=== PATIENT | female | born 1955 | race Caucasian/White ===

== ENCOUNTER 2019-07-10 00:37 | Inpatient (IN) | payer MEDICAID ==
[~2019-07-10] VITALS: Ht 154.9 cm; Wt 66.2 kg
[~2019-07-10 00:37] MED LIST: FURO20TA4 PO; GLIP10TA10 PO; METF-416 PO; PRAV20TA57 PO; SITA100T11 PO
[2019-07-10] MEDS ORDERED: SODIUM CHLORIDE 0.9% 1,000 ML IV ONE (01:02)
[2019-07-10] MEDS ORDERED: ONDANSETRON HCL 4MG/2ML INJ IV STA (01:02)
[2019-07-10] MEDS ORDERED: KETOROLAC 30MG/ML VIAL IV STA (01:02)
[2019-07-10 01:41] LABS: BASOPHILS % 0.5 % (0.0-2.0); HEMATOCRIT. 31.1 % (36.0-48.0); MEAN CORPUSCULAR HEMOGLOBIN 25.3 pg (28.0-32.0); MEAN CORPUSCULAR VOLUME 78.5 fL (81.0-99.0); MEAN PLATELET VOLUME 9.2 fl (7.4-10.4); MONOCYTES % 6.9 % (2.0-8.0); NEUTROPHILS % 78.6 % (40.0-76.0); PLATELET 107 x1000/uL (130-400); RED BLOOD CELL COUNT 3.96 mill/uL (4.2-5.4); RED CELL DISTRIBUTION WIDTH 18.9 % (11.6-14.6)
[2019-07-10 01:44] LABS: CHLORIDE 111 mEq/L (98-107)
[2019-07-10] MEDS ORDERED: MORPHINE SULFATE 4 MG/ML CPJ (NOT FOR IM USE) IV ONE (02:45)
[2019-07-10] MEDS ORDERED: POTASSIUM CHLORIDE 20MEQ TABLET SR PO SCH (08:30)
[2019-07-10] MEDS ORDERED: ACETAMINOPHEN 325MG TABLET PO PRN (08:30)
[2019-07-10] MEDS ORDERED: MORPHINE SULFATE 2 MG/ML CPJ (NOT FOR IM USE) IV PRN ×2 (08:30→17:30)
[2019-07-10] MEDS ORDERED: ONDANSETRON HCL 4MG/2ML INJ IV PRN (08:30)
[2019-07-10] MEDS ORDERED: HYDROCODONE/ACETAMINOPHEN 5/325MG TABLET PO PRN ×2 (08:30→17:30)
[2019-07-10] MEDS ORDERED: LIDOCAINE HCL 1% 20ML VIAL (Pyxis) INJ ONE (09:41)
[2019-07-10] MEDS ORDERED: SODIUM BICARBONATE 4% (2.4MEQ) 5ML VIAL IV ONE (09:41)
[2019-07-10] MEDS ORDERED: DEXTROSE 50% WATER 50ML SYRINGE IV PRN (17:15)
[2019-07-10 17:23] VITALS: BP 112/61
[2019-07-10 17:27] VITALS: BP 112/61
[2019-07-10] MEDS: INSULIN LISPRO 100 UNITS/ML SUBCUT SCH ×2 (17:53→21:35)
[2019-07-10] MEDS: BLOOD SUGAR DIAGNOSTIC STRIP TEST SCH ×2 (17:53→20:56)
[2019-07-10] MEDS ORDERED: OCTREOTIDE 1,000 MCG in SODIUM CHLORIDE 0.9% 98 ML IV SCH ×4 (18:30)
[2019-07-10 20:00] VITALS: BP 110/56
[2019-07-10] MEDS ORDERED: CEFTRIAXONE 1 G PREMIX 50 ML IV SCH (20:00)
[2019-07-10] MEDS: PANTOPRAZOLE SODIUM 40 MG/VIAL IV SCH (20:56)
[2019-07-10 22:11] LABS: CLARITY URINE CLEAR (CLEAR); COLOR URINE YELLOW (YELLOW); KETONES URINE NEGATIVE (NEGATIVE); LEUKOCYTE ESTERASE URINE NEGATIVE (NEGATIVE); NITRITE URINE NEGATIVE (NEGATIVE); OCCULT BLOOD URINE NEGATIVE (NEGATIVE); PROTEIN URINE NEGATIVE (NEGATIVE); SPECIFIC GRAVITY URINE 1.011 (1.005-1.030); UROBILINOGEN URINE 0.2 E.U./dL (0.2-1.0)
[2019-07-11 01:51] VITALS: BP 115/59
[2019-07-11 04:00] VITALS: BP 113/60
[2019-07-11 07:25] LABS: BASOPHILS % 0.5 % (0.0-2.0); EOSINOPHILS % 1.5 % (0.0-5.0); HEMATOCRIT. 29.4 % (36.0-48.0); HEMOGLOBIN. 9.6 g/dL (12.0-16.0); LYMPHOCYTES % 28.5 % (20.0-50.0); MEAN CORPUSCULAR HEMOGLOBIN 25.5 pg (28.0-32.0); MEAN PLATELET VOLUME 9.5 fl (7.4-10.4); MONOCYTES % 6.7 % (2.0-8.0); NEUTROPHILS % 62.8 % (40.0-76.0); PLATELET 102 x1000/uL (130-400); RED BLOOD CELL COUNT 3.77 mill/uL (4.2-5.4); RED CELL DISTRIBUTION WIDTH 19.1 % (11.6-14.6)
[2019-07-11] MEDS: BLOOD SUGAR DIAGNOSTIC STRIP TEST SCH ×3 (07:29→17:40)
[2019-07-11 07:30] LABS: INR 1.1; PARTIAL THROMBOPLASTIN TIME 27.3 sec (23.4-31.0); PROTHROMBIN TIME 11.6 sec (9.6-11.0)
[2019-07-11 07:36] LABS: CHLORIDE 112 mEq/L (98-107)
[2019-07-11] MEDS ORDERED: OMEPRAZOLE 20MG CAPSULE EXTENDED RELEASE PO SCH (07:40)
[2019-07-11 07:45] LABS: TOTAL IRON BINDING CAPACITY 366 ug/dL (250-450)
[2019-07-11 08:00] VITALS: BP 112/47
[2019-07-11] MEDS: INSULIN LISPRO 100 UNITS/ML SUBCUT SCH ×3 (08:01→18:10)
[2019-07-11 08:03] LABS: VITAMIN B12 SERUM 736 pg/mL (211-911)
[2019-07-11] MEDS ORDERED: SPIRONOLACTONE 50MG TABLET PO SCH (09:00)
[2019-07-11] MEDS ORDERED: FUROSEMIDE 40MG TABLET PO SCH (09:00)
[2019-07-11] MEDS: PANTOPRAZOLE SODIUM 40 MG/VIAL IV SCH (09:18)
[2019-07-11 12:00] VITALS: BP 111/57
[2019-07-11 12:20] LABS: FERRITIN 11 ng/mL (10-291)
[2019-07-11 12:31] LABS: HEPATITIS B SURFACE ANTIGEN NEGATIVE
[2019-07-11 13:00] LABS: HEPATITIS A AB IGM NEGATIVE (NEGATIVE)
[2019-07-11] MEDS ORDERED: SPIR100T5 MT (13:15)
[2019-07-11] MEDS ORDERED: FURO-151 MT (13:15)
[2019-07-11] MEDS ORDERED: PROP10TA10 MT (13:15)
[2019-07-11] MEDS ORDERED: SIMETHICONE 40 MG/0.6 ML 30ML ONE (16:06)
[2019-07-11] MEDS ORDERED: FENTANYL CITRATE/PF 50MCG/ML 2ML VIAL ONE (16:06)
[2019-07-11] MEDS ORDERED: MIDAZOLAM HCL 5 MG/5 ML VIAL ONE (16:06)
[2019-07-11] MEDS ORDERED: FENTANYL CITRATE/PF 50MCG/ML 2ML VIAL IV PRN (16:09)
[2019-07-11] MEDS ORDERED: MIDAZOLAM HCL 2 MG/2 ML VIAL IV PRN (16:10)
[2019-07-11 18:29] VITALS: BP 116/68
[2019-07-14 09:09] LABS: SACCHAROMYCES CEREVISIAE IGG 55.4 Units (0.0-24.9)
[2019-07-14 14:09] LABS: ATYPICAL pANCA <1:20 titer (Neg:<1:20)
== END 2019-07-11 19:19 | disposition home or self-care (01) ==
LOC: ER 01:26 → 7WST 05:48 → ENRESERV 14:22
PROVIDERS: ADMIT Internal Medicine; ATTEND Internal Medicine
PROC: 0W9G3ZZ Drainage of Peritoneal Cavity, Percutaneous Approach (ICD-10-PCS; 2019-07-10)
PROC: 0DB68ZX Excision of Stomach, Via Natural or Artificial Opening Endoscopic, Diagnostic (ICD-10-PCS; principal; 2019-07-11)
DX: K74.60 Unspecified cirrhosis of liver (principal); E44.0 Moderate protein-calorie malnutrition; D69.59 Other secondary thrombocytopenia; D69.6 Thrombocytopenia, unspecified; E87.8 Other disorders of electrolyte and fluid balance, not elsewhere classified; K76.6 Portal hypertension; I85.00 Esophageal varices without bleeding; R18.8 Other ascites; N39.0 Urinary tract infection, site not specified; E87.6 Hypokalemia; D64.9 Anemia, unspecified; E11.9 Type 2 diabetes mellitus without complications; E78.5 Hyperlipidemia, unspecified; G89.29 Other chronic pain; I10 Essential (primary) hypertension; K29.70 Gastritis, unspecified, without bleeding; K44.9 Diaphragmatic hernia without obstruction or gangrene; K52.9 Noninfective gastroenteritis and colitis, unspecified; K31.9 Disease of stomach and duodenum, unspecified; Z85.3 Personal history of malignant neoplasm of breast; Z79.84 Long term (current) use of oral hypoglycemic drugs; Z79.899 Other long term (current) drug therapy; Z68.27 Body mass index [BMI] 27.0-27.9, adult
CPT/HCPCS: 36415; 49083; 74176; 80048; 80053; 81003; 82105; 82140; 82607; 82728; 82746; 82962; 83540; 83550; 83880; 84484; 85025; 86256; 86671; 86705; 86709; 86803; 87340; 88305; 88312; 88313; 93005; 99285; C9113; J0696; J1815; J1885; J2250; J2270; J2354; J2405; J3010; J3490; J7030; J7050

== ENCOUNTER 2021-11-15 05:35 | Emergency (ER) | payer MEDICAID, OTHER ==
[~2021-11-15] VITALS: Ht 154.9 cm; Wt 55.6 kg
[~2021-11-15 05:35] MED LIST changes: +FURO-151 MT; -FURO20TA4 PO; +LATA7.5D OP; +OMEP40CA20 MT; +PROP10TA10 MT; -SITA100T11 PO; +SPIR100T5 MT
[2021-11-15 06:26] LABS: BASOPHILS % 1.5 % (0.0-2.0); CHLORIDE 106 mEq/L (98-107); HEMATOCRIT. 25.6 % (36.0-48.0); LYMPHOCYTES % 32.8 % (20.0-50.0); MEAN CORPUSCULAR HEMOGLOBIN 24.9 pg (28.0-32.0); MEAN CORPUSCULAR VOLUME 79.3 fL (81.0-99.0); MEAN PLATELET VOLUME 8.8 fl (7.4-10.4); MONOCYTES % 10.8 % (2.0-8.0); NEUTROPHILS % 53.9 % (40.0-76.0); PLATELET 153 x1000/uL (130-400); RED BLOOD CELL COUNT 3.23 mill/uL (4.2-5.4); RED CELL DISTRIBUTION WIDTH 18.2 % (11.6-14.6)
[2021-11-15] MEDS ORDERED: FAMOTIDINE 20MG/2ML VIAL IV STA (08:10)
[2021-11-15 08:31] LABS: CLARITY URINE CLEAR (CLEAR); COLOR URINE YELLOW (YELLOW); KETONES URINE NEGATIVE (NEGATIVE); LEUKOCYTE ESTERASE URINE NEGATIVE (NEGATIVE); NITRITE URINE NEGATIVE (NEGATIVE); OCCULT BLOOD URINE NEGATIVE (NEGATIVE); PH URINE 5.5 (4.5-8.0); PROTEIN URINE NEGATIVE (NEGATIVE); SPECIFIC GRAVITY URINE 1.019 (1.005-1.030); UROBILINOGEN URINE 0.2 E.U./dL (0.2-1.0)
[2021-11-15 08:59] LABS: PARTIAL THROMBOPLASTIN TIME 23.4 sec (23.4-31.0); PROTHROMBIN TIME 10.9 sec (9.6-11.0)
[2021-11-15] MEDS ORDERED: SODIUM BICARBONATE 4% (2.4MEQ) 5ML VIAL IV ONE (10:02)
[2021-11-15] MEDS ORDERED: LIDOCAINE HCL 1% 10 MG/ML 10ML VIAL ONE (10:02)
[2021-11-15] MEDS ORDERED: FAMO-135 MT ×2 (11:02→11:49)
[2021-11-15 11:56] VITALS: BP 112/58
== END 2021-11-15 12:03 | disposition home or self-care (01) ==
LOC: ER 05:57
DX: R18.8 Other ascites (principal); E11.9 Type 2 diabetes mellitus without complications; Z79.899 Other long term (current) drug therapy; Z20.822 Contact with and (suspected) exposure to COVID-19
CPT/HCPCS: 36415; 70450; 70486; 74176; 76705; 80053; 81003; 85025; 85610; 85730; 87426; 96374; 99284; J3490

== ENCOUNTER 2022-03-22 20:16 | Emergency (ER) | payer MEDICAID, OTHER ==
[~2022-03-22] VITALS: Ht 157.5 cm; Wt 54.0 kg
[~2022-03-22 20:16] MED LIST changes: +FAMO-135 MT
[2022-03-22 23:28] LABS: PROTHROMBIN TIME 11.2 sec (9.6-11.0)
[2022-03-22 23:29] LABS: CHLORIDE 105 mEq/L (98-107)
[2022-03-22 23:42] LABS: BASOPHILS % 0.7 % (0.0-2.0); EOSINOPHILS % 0.8 % (0.0-5.0); HEMATOCRIT. 24.9 % (36.0-48.0); HEMOGLOBIN. 7.6 g/dL (12.0-16.0); LYMPHOCYTES % 23.7 % (20.0-50.0); MEAN CORPUSCULAR HEMOGLOBIN 23.3 pg (28.0-32.0); MEAN CORPUSCULAR VOLUME 76.8 fL (81.0-99.0); MONOCYTES % 11.2 % (2.0-8.0); NEUTROPHILS % 63.6 % (40.0-76.0); PLATELET 151 x1000/uL (130-400); RED BLOOD CELL COUNT 3.23 mill/uL (4.2-5.4); RED CELL DISTRIBUTION WIDTH 17.7 % (11.6-14.6)
[2022-03-23 02:15] VITALS: BP 114/54
== END 2022-03-23 02:15 | disposition home or self-care (01) ==
LOC: ER 20:16
DX: R53.1 Weakness (principal); D64.9 Anemia, unspecified; E11.65 Type 2 diabetes mellitus with hyperglycemia; Z98.890 Other specified postprocedural states; Z85.6 Personal history of leukemia; Z79.899 Other long term (current) drug therapy
CPT/HCPCS: 36415; 71045; 80053; 84484; 85025; 93005; 99285

== ENCOUNTER 2024-05-11 15:22 | Inpatient (IN) | payer MEDICAID, OTHER ==
[~2024-05-11] VITALS: Ht 154.9 cm; Wt 59.0 kg
[~2024-05-11 15:22] MED LIST changes: +ASPI-1160 PO; +COR6 MT; -FAMO-135 MT; +FERR325T6 MT; -LATA7.5D OP; +LEVO-65 MT; +LINA5TAB MT; +MIDO5TAB4 MT; -PRAV20TA57 PO; -PROP10TA10 MT; -SPIR100T5 MT; +SPIR25TA6 MT; +SUCR1TAB30 MT; +TRAZ-251 MT
[2024-05-11] MEDS: MORPHINE SULFATE 4 MG/ML INJ (FOR IV/IM USE) IV STA (16:45)
[2024-05-11] MEDS: ONDANSETRON HCL 4MG/2ML INJ IV STA (16:46)
[2024-05-11] MEDS: SODIUM CHLORIDE 0.9% 1,000 ML IV ONE (16:46)
[2024-05-11 17:00] LABS: BASOPHILS % 1.1 % (0.0-2.0); EOSINOPHILS % 0.5 % (0.0-5.0); HEMATOCRIT. 26.4 % (36.0-48.0); HEMOGLOBIN. 8.4 g/dL (12.0-16.0); LYMPHOCYTES % 16.4 % (20.0-50.0); MEAN CORPUSCULAR HEMOGLOBIN 27.8 pg (28.0-32.0); MEAN CORPUSCULAR HGB CONC 31.7 g/dL (31.0-37.0); MEAN CORPUSCULAR VOLUME 87.8 fL (81.0-99.0); MEAN PLATELET VOLUME 9.4 fl (7.4-10.4); MONOCYTES % 9.8 % (2.0-8.0); NEUTROPHILS % 72.2 % (40.0-76.0); PLATELET 146 x1000/uL (130-400); RED BLOOD CELL COUNT 3.01 mill/uL (4.2-5.4); WHITE BLOOD COUNT 6.1 x1000/uL (4.5-11.0)
[2024-05-11 17:05] LABS: CARBON DIOXIDE 23 mEq/L (21-32); CHLORIDE 100 mEq/L (98-107); POTASSIUM 5.1 mEq/L (3.5-5.1); SODIUM 129 mEq/L (136-145)
[2024-05-11 17:06] LABS: CALCIUM 9.2 mg/dL (8.7-10.4)
[2024-05-11 17:10] LABS: CREATININE 1.1 mg/dL (0.6-1.0)
[2024-05-11 17:11] LABS: GLUCOSE 391 mg/dL (70-105); TROPONIN I HIGH SENSITIVITY 7 ng/L (3.0-34); UREA NITROGEN BLOOD 17 mg/dL (9-23)
[2024-05-11 17:12] LABS: ALANINE AMINOTRANSFERASE 25 IU/L (10-49); ALBUMIN 3.3 g/dL (3.2-4.8); ASPARTATE AMINOTRANSFERASE 69 IU/L (<34)
[2024-05-11 17:13] LABS: BILIRUBIN DIRECT 0.3 mg/dL (<=3.0); BILIRUBIN TOTAL 0.7 mg/dL (0.1-1.0)
[2024-05-11 17:27] LABS: BETA HYDROXYBUTYRATE 0.5 mMol/L (0.0-0.3)
[2024-05-12 00:34] LABS: CLARITY URINE CLEAR (CLEAR); COLOR URINE YELLOW (YELLOW); GLUCOSE URINE 3+ (NEGATIVE); KETONES URINE TRACE (NEGATIVE); LEUKOCYTE ESTERASE URINE NEGATIVE (NEGATIVE); NITRITE URINE NEGATIVE (NEGATIVE); OCCULT BLOOD URINE NEGATIVE (NEGATIVE); PROTEIN URINE NEGATIVE (NEGATIVE); SPECIFIC GRAVITY URINE 1.033 (1.005-1.030); UROBILINOGEN URINE 0.2 E.U./dL (0.2-1.0)
[2024-05-12 01:07] LABS: BACTERIA URINE NONE SEEN; RBC URINE NONE SEEN /hpf (0-2); SQUAMOUS EPITHELIAL CELL URINE NONE SEEN /lpf (RARE/1+); WBC URINE NONE SEEN /hpf (0-2)
[2024-05-12 01:41] LABS: PARTIAL THROMBOPLASTIN TIME 25.6 sec (23.4-31.0); PROTHROMBIN TIME 11.4 sec (9.6-11.0)
[2024-05-12 04:00] VITALS: BP 98/40; PULSE 82; RESP 18; TEMP 36.3918; TEMP 37.05852; O2SAT 99
[2024-05-12] MEDS ORDERED: DEXTROSE 50% WATER 50ML SYRINGE IV PRN (09:30)
[2024-05-12] MEDS: BLOOD SUGAR DIAGNOSTIC STRIP TEST SCH (12:08)
[2024-05-12] MEDS: INSULIN LISPRO 100 UNITS/ML SUBCUT SCH (12:15)
[2024-05-13 01:22] VITALS: BP 105/55; PULSE 97; RESP 20; TEMP 36.974
[2024-05-13 08:00] VITALS: BP 100/59; PULSE 93; RESP 17; TEMP 36.50292; O2SAT 100
[2024-05-13] MEDS: ACETAMINOPHEN 325MG TABLET PO PRN (08:24)
[2024-05-13] MEDS: ONDANSETRON HCL 4MG/2ML INJ IV PRN (08:24)
[2024-05-13] MEDS ORDERED: LIDOCAINE HCL 1% 10 MG/ML 10ML VIAL ONE (10:14)
[2024-05-13] MEDS ORDERED: SODIUM BICARBONATE 4% 2.4MEQ/5ML VIAL IV ONE (10:14)
[2024-05-13] MEDS ORDERED: INSU100I28 SQ (10:47)
[2024-05-13] MEDS: INSULIN GLARGINE 100 UNITS/ML SUBCUT NR (11:00)
[2024-05-13 12:00] VITALS: BP 94/44; PULSE 17; RESP 17; TEMP 36.3918; O2SAT 99
[2024-05-13 16:00] VITALS: BP 96/46; PULSE 77; RESP 17; TEMP 35.33616; O2SAT 97
[2024-05-13] MEDS ORDERED: PNEUMOCOCCAL 20-VAL CONJ-DIP CRM 0.5ML IM ONE (18:00)
== END 2024-05-13 19:00 | disposition home or self-care (01) ==
LOC: ER 15:22 → 5WST 18:21 → EDBEDREQTM 18:35 → EDBEDREQ 18:35 → 8WST 05-12 22:02
PROVIDERS: ADMIT Internal Medicine; ATTEND Internal Medicine
PROC: 0W9G3ZZ Drainage of Peritoneal Cavity, Percutaneous Approach (ICD-10-PCS; principal; 2024-05-13)
DX: K74.60 Unspecified cirrhosis of liver (principal); R18.8 Other ascites; I50.9 Heart failure, unspecified; I11.0 Hypertensive heart disease with heart failure; E11.65 Type 2 diabetes mellitus with hyperglycemia; D64.9 Anemia, unspecified; Z79.4 Long term (current) use of insulin; Z85.3 Personal history of malignant neoplasm of breast; Z90.12 Acquired absence of left breast and nipple; Z92.21 Personal history of antineoplastic chemotherapy; Z92.3 Personal history of irradiation
CPT/HCPCS: 36415; 49083; 71045; 74176; 80048; 80076; 81003; 82010; 82962; 83880; 84484; 85025; 93005; 99285; J1815; J2270; J2405; J3490; J7030

== ENCOUNTER 2024-05-23 05:27 | Inpatient (IN) | payer MEDICAID, OTHER ==
[~2024-05-23] VITALS: Ht 154.9 cm; Wt 51.3 kg
[~2024-05-23 05:27] MED LIST changes: +INSU100I28 SQ; -LEVO-65 MT
[2024-05-23 05:52] VITALS: O2SAT 98
[2024-05-23 05:56] LABS: BASOPHILS % 0.6 % (0.0-2.0); EOSINOPHILS % 0.7 % (0.0-5.0); HEMATOCRIT. 31.8 % (36.0-48.0); HEMOGLOBIN. 9.8 g/dL (12.0-16.0); LYMPHOCYTES % 15.9 % (20.0-50.0); MEAN CORPUSCULAR HEMOGLOBIN 27.6 pg (28.0-32.0); MEAN CORPUSCULAR HGB CONC 30.8 g/dL (31.0-37.0); MEAN CORPUSCULAR VOLUME 89.8 fL (81.0-99.0); MEAN PLATELET VOLUME 8.8 fl (7.4-10.4); MONOCYTES % 14.1 % (2.0-8.0); NEUTROPHILS % 68.7 % (40.0-76.0); PLATELET 183 x1000/uL (130-400); RED BLOOD CELL COUNT 3.54 mill/uL (4.2-5.4); RED CELL DISTRIBUTION WIDTH 22.9 % (11.6-14.6); WHITE BLOOD COUNT 5.5 x1000/uL (4.5-11.0)
[2024-05-23 06:14] LABS: CHLORIDE 102 mEq/L (98-107); POTASSIUM 4.1 mEq/L (3.5-5.1); SODIUM 134 mEq/L (136-145)
[2024-05-23 06:15] LABS: CALCIUM 8.5 mg/dL (8.7-10.4); CARBON DIOXIDE 25 mEq/L (21-32)
[2024-05-23 06:20] LABS: CREATININE 1.1 mg/dL (0.6-1.0); GLUCOSE 259 mg/dL (70-105); UREA NITROGEN BLOOD 16 mg/dL (9-23)
[2024-05-23 06:22] LABS: ALANINE AMINOTRANSFERASE 31 IU/L (10-49); ALBUMIN 3.2 g/dL (3.2-4.8); ASPARTATE AMINOTRANSFERASE 41 IU/L (<34); BILIRUBIN DIRECT 0.3 mg/dL (<=3.0)
[2024-05-23 06:23] LABS: BILIRUBIN TOTAL 0.6 mg/dL (0.1-1.0); PROTEIN TOTAL 6.8 g/dL (6.0-8.3)
[2024-05-23 06:51] LABS: PROTHROMBIN TIME 11.4 sec (9.6-11.0)
[2024-05-23 07:05] LABS: DIFFERENTIAL COMMENT 1
[2024-05-23 07:08] LABS: ADD RBC MORPHOLOGY YES
[2024-05-23 08:41] LABS: ANISOCYTOSIS 1+; PLATELET ESTIMATE NORMAL
[2024-05-23] MEDS: SODIUM BICARBONATE 4% 2.4MEQ/5ML VIAL IV ONE (09:27)
[2024-05-23] MEDS: LIDOCAINE HCL 1% 10 MG/ML 10ML VIAL ONE (09:27)
[2024-05-23 20:00] VITALS: BP 106/57; PULSE 76; RESP 16; TEMP 37.2252; O2SAT 98
[2024-05-23] MEDS ORDERED: MAGNESIUM/ALUMINUM HYDROXIDE/SIMETHICONE 30ML UDC PO PRN (21:00)
[2024-05-23] MEDS ORDERED: GUAIFENESIN 200MG/10ML SUGAR FREE UDC PO PRN (21:00)
[2024-05-23] MEDS: BLOOD SUGAR DIAGNOSTIC STRIP TEST SCH (21:00)
[2024-05-23] MEDS ORDERED: ZOLPIDEM TARTRATE 5MG TABLET PO PRN (21:00)
[2024-05-23] MEDS ORDERED: IPRATROPIUM/ALBUTEROL 0.5-3(2.5)MG/3ML NEB NEB PRN (21:00)
[2024-05-23] MEDS ORDERED: NITROGLYCERIN 0.4MG TABLET SL SL PRN (21:00)
[2024-05-23] MEDS: INSULIN LISPRO 100 UNITS/ML SUBCUT SCH (21:00)
[2024-05-23] MEDS ORDERED: CLONIDINE 0.1MG TABLET PO PRN (21:00)
[2024-05-23] MEDS ORDERED: DEXTROSE 50% WATER 50ML SYRINGE IV PRN (21:00)
[2024-05-23] MEDS ORDERED: ONDANSETRON HCL 4MG/2ML INJ IV PRN (21:00)
[2024-05-23] MEDS: PANTOPRAZOLE SODIUM 40 MG/VIAL IV SCH (21:00)
[2024-05-23] MEDS ORDERED: ACETAMINOPHEN 325MG TABLET PO PRN ×2 (21:00)
[2024-05-23] MEDS ORDERED: DOCUSATE SODIUM 100MG CAPSULE PO PRN (21:00)
[2024-05-24] VITALS: BP 107/60; PULSE 97; RESP 21; TEMP 37.00296; O2SAT 100
[2024-05-24] MEDS: KETOROLAC 30MG/ML VIAL IV PRN (00:48)
[2024-05-24 01:09] VITALS: BP 107/60; PULSE 97; RESP 21; TEMP 37.0296
[2024-05-24 04:00] VITALS: BP 97/47; PULSE 95; RESP 18; TEMP 36.114; O2SAT 100
[2024-05-24 08:00] VITALS: BP 106/57; PULSE 76; RESP 16; TEMP 37.2252; O2SAT 98
[2024-05-24] MEDS: MIDODRINE HCL 5MG TABLET PO SCH (09:00)
[2024-05-24 10:42] LABS: CHLORIDE 101 mEq/L (98-107); POTASSIUM 3.7 mEq/L (3.5-5.1); SODIUM 134 mEq/L (136-145)
[2024-05-24 10:44] LABS: CARBON DIOXIDE 23 mEq/L (21-32)
[2024-05-24 10:45] LABS: CALCIUM 8.3 mg/dL (8.7-10.4)
[2024-05-24 10:50] LABS: CREATININE 1.1 mg/dL (0.6-1.0); GLUCOSE 298 mg/dL (70-105); UREA NITROGEN BLOOD 22 mg/dL (9-23)
[2024-05-24 10:51] LABS: ALANINE AMINOTRANSFERASE 32 IU/L (10-49); ALBUMIN 2.8 g/dL (3.2-4.8); ASPARTATE AMINOTRANSFERASE 44 IU/L (<34)
[2024-05-24 10:52] LABS: BILIRUBIN TOTAL 0.6 mg/dL (0.1-1.0); PHOSPHORUS 3.3 mg/dL (2.5-4.9); PROTEIN TOTAL 6.3 g/dL (6.0-8.3); T4 FREE 1.16 ng/dL (0.89-1.76)
[2024-05-24 10:53] LABS: BASOPHILS % 0.6 % (0.0-2.0); EOSINOPHILS % 0.5 % (0.0-5.0); HEMATOCRIT. 33.1 % (36.0-48.0); LYMPHOCYTES % 15.1 % (20.0-50.0); MEAN CORPUSCULAR HEMOGLOBIN 27.4 pg (28.0-32.0); MEAN CORPUSCULAR HGB CONC 30.3 g/dL (31.0-37.0); MEAN CORPUSCULAR VOLUME 90.6 fL (81.0-99.0); MEAN PLATELET VOLUME 8.9 fl (7.4-10.4); MONOCYTES % 8.8 % (2.0-8.0); PLATELET 157 x1000/uL (130-400); RED BLOOD CELL COUNT 3.66 mill/uL (4.2-5.4); RED CELL DISTRIBUTION WIDTH 22.7 % (11.6-14.6); THYROID STIMULATING HORMONE 2.36 uIU/mL (0.55-4.78); WHITE BLOOD COUNT 4.6 x1000/uL (4.5-11.0)
[2024-05-24 11:09] LABS: DIFFERENTIAL COMMENT 1
[2024-05-24 11:58] LABS: FOLIC ACID (FOLATE) SERUM 12.87 ng/mL (>5.38)
[2024-05-24 12:00] VITALS: BP 98/57; PULSE 76; RESP 16; TEMP 36.6696; O2SAT 98
[2024-05-24 12:09] LABS: HEPATITIS B SURFACE ANTIGEN NEGATIVE (Negative)
[2024-05-24 12:30] LABS: HEPATITIS A AB IGM NEGATIVE (Negative)
[2024-05-24 12:31] LABS: HEPATITIS B CORE AB IGM NEGATIVE (Negative); HEPATITIS C AB NON REACTIVE (Neg) (Negative)
[2024-05-24 13:23] LABS: VITAMIN B12 SERUM 2197 pg/mL (211-911)
[2024-05-24 16:00] VITALS: BP 110/60; PULSE 76; RESP 16; TEMP 36.61404; O2SAT 98
== END 2024-05-24 16:15 | disposition home or self-care (01) ==
LOC: ER 05:27 → 5WST 06:43 → 6WST 23:45
PROVIDERS: ADMIT Internal Medicine; ATTEND Internal Medicine
PROC: 0W9G3ZZ Drainage of Peritoneal Cavity, Percutaneous Approach (ICD-10-PCS; principal; 2024-05-23)
DX: K74.60 Unspecified cirrhosis of liver (principal); K76.7 Hepatorenal syndrome; N17.9 Acute kidney failure, unspecified; R18.8 Other ascites; E44.1 Mild protein-calorie malnutrition; D63.8 Anemia in other chronic diseases classified elsewhere; I11.0 Hypertensive heart disease with heart failure; I95.9 Hypotension, unspecified; E83.51 Hypocalcemia; I50.9 Heart failure, unspecified; E11.9 Type 2 diabetes mellitus without complications; Z68.21 Body mass index [BMI] 21.0-21.9, adult; Z90.10 Acquired absence of unspecified breast and nipple
CPT/HCPCS: 36415; 49083; 74176; 80048; 80053; 80076; 82607; 82746; 82962; 83735; 84100; 84439; 84443; 85025; 86705; 86709; 86850; 86900; 87340; 93970; 99285; J1815; J1885; J2470; J3490

== ENCOUNTER 2024-11-17 10:47 | Inpatient (IN) | payer OTHER ==
[~2024-11-17] VITALS: Ht 154.9 cm; Wt 48.1 kg
[~2024-11-17 10:47] MED LIST changes: -ASPI-1160 PO; +BUME2TAB7 PO; +DOCU-422 PO; +GABA-1180 PO; -GLIP10TA10 PO; +GLIP10TA17 PO; +HYDR10TA34 PO; +PARO10TA74 PO
[2024-11-17] MEDS: CALCIUM GLUCONATE 1GM PREMIX 50 ML IV ONE (11:35)
[2024-11-17 11:42] LABS: HEMATOCRIT. 32.5 % (36.0-48.0); HEMOGLOBIN. 10.5 g/dL (12.0-16.0); MEAN CORPUSCULAR HEMOGLOBIN 28.2 pg (28.0-32.0); MEAN CORPUSCULAR HGB CONC 32.4 g/dL (31.0-37.0); MEAN CORPUSCULAR VOLUME 87.2 fL (81.0-99.0); MEAN PLATELET VOLUME 8.3 fl (7.4-10.4); PLATELET 290 x1000/uL (130-400); RED BLOOD CELL COUNT 3.73 mill/uL (4.2-5.4); RED CELL DISTRIBUTION WIDTH 16.8 % (11.6-14.6); WHITE BLOOD COUNT 5.6 x1000/uL (4.5-11.0)
[2024-11-17 11:43] LABS: DIFFERENTIAL COMMENT 1
[2024-11-17 11:50] LABS: INR 1.1; PROTHROMBIN TIME 11.3 sec (9.6-11.0)
[2024-11-17 11:51] LABS: CHLORIDE 94 mEq/L (98-107); POTASSIUM 4.4 mEq/L (3.5-5.1); SODIUM 127 mEq/L (136-145)
[2024-11-17 11:52] LABS: CALCIUM 8.6 mg/dL (8.7-10.4); CARBON DIOXIDE 29 mEq/L (21-32)
[2024-11-17 11:57] LABS: UREA NITROGEN BLOOD 14 mg/dL (9-23)
[2024-11-17 11:58] LABS: TROPONIN I HIGH SENSITIVITY 6 ng/L (3.0-34)
[2024-11-17 11:59] LABS: ALANINE AMINOTRANSFERASE 38 IU/L (10-49); ALBUMIN 2.9 g/dL (3.2-4.8); ASPARTATE AMINOTRANSFERASE 47 IU/L (<34); BILIRUBIN DIRECT 0.2 mg/dL (<=3.0)
[2024-11-17 12:00] LABS: BILIRUBIN TOTAL 0.6 mg/dL (0.1-1.0); PROTEIN TOTAL 7.7 g/dL (6.0-8.3)
[2024-11-17 12:20] LABS: GLUCOSE 521 mg/dL (70-105)
[2024-11-17 13:19] LABS: ANISOCYTOSIS 1+; PLATELET ESTIMATE NORMAL
[2024-11-17 13:44] LABS: CLARITY URINE CLEAR (CLEAR); COLOR URINE YELLOW (YELLOW); GLUCOSE URINE 3+ (NEGATIVE); KETONES URINE NEGATIVE (NEGATIVE); LEUKOCYTE ESTERASE URINE NEGATIVE (NEGATIVE); NITRITE URINE NEGATIVE (NEGATIVE); OCCULT BLOOD URINE NEGATIVE (NEGATIVE); PH URINE 6.5 (4.5-8.0); PROTEIN URINE NEGATIVE (NEGATIVE); SPECIFIC GRAVITY URINE 1.025 (1.005-1.030); UROBILINOGEN URINE 0.2 E.U./dL (0.2-1.0)
[2024-11-17] MEDS: CEFTRIAXONE 1GM/50ML 50 ML IV ONE (14:08)
[2024-11-17 14:15] LABS: SQUAMOUS EPITHELIAL CELL URINE 1+ /lpf (RARE/1+)
[2024-11-17 14:16] LABS: BACTERIA URINE TRACE
[2024-11-17 14:17] LABS: RBC URINE NONE SEEN /hpf (0-2); WBC URINE 0-2 /hpf (0-2)
[2024-11-17 16:00] VITALS: BP 101/56; PULSE 84; RESP 18; TEMP 36.5; O2SAT 100
[2024-11-17] MEDS ORDERED: DEXTROSE 50% WATER 50ML SYRINGE IV PRN (18:00)
[2024-11-17] MEDS ORDERED: ONDANSETRON HCL 4MG/2ML INJ IV PRN (18:00)
[2024-11-17 18:25] VITALS: BP 101/56; PULSE 84; RESP 18; TEMP 36.5
[2024-11-17 20:00] VITALS: BP 103/59; PULSE 74; RESP 20; TEMP 36.1; O2SAT 94
[2024-11-17] MEDS: BLOOD SUGAR DIAGNOSTIC STRIP TEST SCH (21:39)
[2024-11-17] MEDS: INSULIN LISPRO 100 UNITS/ML SUBCUT SCH (21:53)
[2024-11-17] MEDS: ACETAMINOPHEN 325MG TABLET PO PRN (21:54)
[2024-11-18] VITALS: BP 100/53; PULSE 86; RESP 18; TEMP 37.5; O2SAT 97
[2024-11-18 04:00] VITALS: BP 113/62; PULSE 78; RESP 18; TEMP 36.7; O2SAT 97
[2024-11-18 08:00] VITALS: BP 93/62; PULSE 83; RESP 20; TEMP 36.8; O2SAT 98
[2024-11-18] MEDS ORDERED: LIDOCAINE HCL 1% 10 MG/ML 10ML VIAL ONE (09:38)
[2024-11-18 12:00] VITALS: BP 99/53; PULSE 87; RESP 20; TEMP 36.1; O2SAT 100
[2024-11-18 13:48] LABS: EOSINOPHILS % 0.8 % (0.0-5.0); HEMATOCRIT. 31.8 % (36.0-48.0); HEMOGLOBIN. 10.3 g/dL (12.0-16.0); LYMPHOCYTES % 10.6 % (20.0-50.0); MEAN CORPUSCULAR HEMOGLOBIN 28.2 pg (28.0-32.0); MEAN CORPUSCULAR HGB CONC 32.4 g/dL (31.0-37.0); MEAN CORPUSCULAR VOLUME 87.1 fL (81.0-99.0); MEAN PLATELET VOLUME 7.9 fl (7.4-10.4); MONOCYTES % 12.5 % (2.0-8.0); NEUTROPHILS % 75.1 % (40.0-76.0); PLATELET 286 x1000/uL (130-400); RED BLOOD CELL COUNT 3.65 mill/uL (4.2-5.4); RED CELL DISTRIBUTION WIDTH 16.7 % (11.6-14.6)
[2024-11-18 13:49] LABS: CHLORIDE 94 mEq/L (98-107); POTASSIUM 3.7 mEq/L (3.5-5.1); SODIUM 128 mEq/L (136-145)
[2024-11-18 13:50] LABS: CALCIUM 8.2 mg/dL (8.7-10.4); CARBON DIOXIDE 30 mEq/L (21-32)
[2024-11-18 13:55] LABS: CREATININE 0.8 mg/dL (0.6-1.0); GLUCOSE 276 mg/dL (70-105); UREA NITROGEN BLOOD 15 mg/dL (9-23)
[2024-11-18] MEDS: TRAMADOL 50MG TABLET PO NR (14:58)
[2024-11-18 16:00] VITALS: BP 109/62; PULSE 84; RESP 20; TEMP 36.5; O2SAT 100
[2024-11-18] MEDS ORDERED: NALOXONE HCL 0.4MG/ML VIAL IV PRN (17:45)
[2024-11-18] MEDS: HYDROCODONE/ACETAMINOPHEN 5/325MG TABLET PO NR (18:14)
[2024-11-18 20:00] VITALS: BP 97/58; PULSE 70; RESP 20; TEMP 36.2; O2SAT 100
[2024-11-19] VITALS: BP 97/55; PULSE 79; RESP 19; TEMP 35.9; O2SAT 96
[2024-11-19 04:00] VITALS: BP 104/57; PULSE 79; RESP 20; TEMP 36; O2SAT 99
[2024-11-19 08:00] VITALS: BP 107/60; PULSE 84; RESP 18; TEMP 35.9; O2SAT 96
[2024-11-19 08:50] VITALS: BP 114/72; PULSE 67; TEMP 97.6; O2SAT 98
[2024-11-19 08:58] VITALS: BP 114/72; PULSE 67; RESP 18
[2024-11-19] MEDS: HYDROCODONE/ACETAMINOPHEN 5/325MG TABLET PO SCH (08:58)
== END 2024-11-19 12:56 | disposition home or self-care (01) ==
LOC: ER 10:47 → 8WST 14:56 → EDBEDREQ 15:02 → EDBEDREQTM 15:02 → ENRESERV 16:14
PROVIDERS: ADMIT Internal Medicine; ATTEND Internal Medicine
PROC: 0W9G3ZZ Drainage of Peritoneal Cavity, Percutaneous Approach (ICD-10-PCS; principal; 2024-11-18)
DX: K74.60 Unspecified cirrhosis of liver (principal); R18.8 Other ascites; E44.0 Moderate protein-calorie malnutrition; E87.1 Hypo-osmolality and hyponatremia; E11.65 Type 2 diabetes mellitus with hyperglycemia; I10 Essential (primary) hypertension; D72.825 Bandemia; E78.5 Hyperlipidemia, unspecified; Z68.20 Body mass index [BMI] 20.0-20.9, adult; Z85.3 Personal history of malignant neoplasm of breast; Z90.10 Acquired absence of unspecified breast and nipple
CPT/HCPCS: 36415; 49083; 71045; 74176; 80048; 80076; 81003; 82962; 83036; 84145; 84484; 85025; 93005; 96365; 96366; 96367; 99291; A4606; J0610; J0696; J1815; J2003

== ENCOUNTER 2024-12-26 10:31 | Inpatient (IN) | payer OTHER ==
[~2024-12-26] VITALS: Ht 154.9 cm; Wt 53.5 kg
[2024-12-26] VITALS (29 sets, daily range): BP systolic 99–130; BP diastolic 55–70; PULSE 90–112; RESP 11–24; TEMP 36.7; O2SAT 98–100
[2024-12-26] MEDS: DEXT 5%/0.9% NACL 1,000 ML IV SCH (01:17)
[2024-12-26] MEDS: LIDOCAINE HCL/EPINEPHRINE 1%-EPI 1:100,000 10ML VIAL INFIL ONE (11:00)
[2024-12-26] MEDS: SODIUM CHLORIDE 0.9% 1,000 ML IV ONE (11:15)
[2024-12-26] MEDS: ONDANSETRON HCL 4MG/2ML INJ IV ONE (11:15)
[2024-12-26] MEDS: PANTOPRAZOLE SODIUM 40 MG/VIAL IV ONE (11:15)
[2024-12-26] MEDS: MORPHINE SULFATE 2 MG/ML INJ (NOT FOR IM USE) IV ONE ×2 (11:23→14:14)
[2024-12-26] MEDS: CEFTRIAXONE 2GM/50ML 50 ML IV ONE (11:24)
[2024-12-26 11:34] LABS: HEMATOCRIT. 22.5 % (36.0-48.0); HEMOGLOBIN. 7.3 g/dL (12.0-16.0); MEAN CORPUSCULAR HEMOGLOBIN 28.7 pg (28.0-32.0); MEAN CORPUSCULAR HGB CONC 32.4 g/dL (31.0-37.0); MEAN CORPUSCULAR VOLUME 88.6 fL (81.0-99.0); MEAN PLATELET VOLUME 9.1 fl (7.4-10.4); PLATELET 271 x1000/uL (130-400); RED BLOOD CELL COUNT 2.54 mill/uL (4.2-5.4); RED CELL DISTRIBUTION WIDTH 17.8 % (11.6-14.6); WHITE BLOOD COUNT 8.9 x1000/uL (4.5-11.0)
[2024-12-26 11:44] LABS: DIFFERENTIAL COMMENT 1
[2024-12-26 11:57] LABS: CHLORIDE 90 mEq/L (98-107); POTASSIUM 5.4 mEq/L (3.5-5.1); SODIUM 127 mEq/L (136-145)
[2024-12-26 11:58] LABS: CALCIUM 8.7 mg/dL (8.7-10.4); CARBON DIOXIDE 23 mEq/L (21-32)
[2024-12-26 12:01] LABS: INR 1.3; PROTHROMBIN TIME 13.3 sec (9.6-11.0)
[2024-12-26 12:03] LABS: CREATININE 1.1 mg/dL (0.6-1.0)
[2024-12-26 12:04] LABS: ETHANOL BLOOD < 10 mg/dL (<10); UREA NITROGEN BLOOD 37 mg/dL (9-23)
[2024-12-26 12:05] LABS: ALANINE AMINOTRANSFERASE 26 IU/L (10-49); ASPARTATE AMINOTRANSFERASE 29 IU/L (<34)
[2024-12-26 12:06] LABS: BILIRUBIN DIRECT 0.6 mg/dL (<=3.0); BILIRUBIN TOTAL 1.3 mg/dL (0.1-1.0); PROTEIN TOTAL 7.3 g/dL (6.0-8.3); TROPONIN I HIGH SENSITIVITY 13 ng/L (3.0-34)
[2024-12-26 12:36] LABS: PROTEIN BODY FLUID < 2.0 gm/dL
[2024-12-26 12:45] LABS: GLUCOSE 512 mg/dL (70-105)
[2024-12-26 12:48] LABS: BODY FLUID RBC 222 /cu mm (0-2000); BODY FLUID WBC 30 /cu mm (0-200)
[2024-12-26 12:49] LABS: LACTIC ACID 6.5 mmol/L (0.4-2.0)
[2024-12-26 12:52] LABS: BODY FLUID MONOCYTES 6 %
[2024-12-26 13:07] LABS: PLATELET ESTIMATE NORMAL
[2024-12-26 13:08] LABS: ANISOCYTOSIS 1+; HYPOCHROMASIA 1+
[2024-12-26] MEDS ORDERED: ONDANSETRON HCL 4MG/2ML INJ IV PRN (15:45)
[2024-12-26] MEDS ORDERED: DEXTROSE 50% WATER 50ML SYRINGE IV PRN ×3 (15:45→16:00)
[2024-12-26] MEDS ORDERED: INSULIN REGULAR 100U/100ML PMX 100 ML IV SCH (15:45)
[2024-12-26] MEDS ORDERED: BLOOD SUGAR DIAGNOSTIC STRIP TEST PRN (16:00)
[2024-12-26] MEDS ORDERED: MAGNESIUM 2 G PREMIX 50 ML IV PRN (16:00)
[2024-12-26] MEDS ORDERED: POTASSIUM CHLORIDE 40 MEQ in SODIUM CHLORIDE 0.9% 230 ML IV PRN (16:00)
[2024-12-26] MEDS: BLOOD SUGAR DIAGNOSTIC STRIP TEST SCH ×2 (17:05→17:56)
[2024-12-26] MEDS: GABAPENTIN 300MG CAPSULE PO SCH (17:50)
[2024-12-26] MEDS: FERROUS SULFATE 325MG TABLET PO SCH (17:50)
[2024-12-26] MEDS: SUCRALFATE 1G TABLET PO SCH (17:50)
[2024-12-26] MEDS: INSULIN REGULAR 100U/100ML PMX 100 ML IV PRN (17:55)
[2024-12-26] MEDS: SODIUM CHLORIDE 0.9% 1,000 ML IV SCH (17:55)
[2024-12-26] MEDS: INSULIN REGULAR (HUMULIN R) 1000UNITS/10ML VIAL IV SCH (17:55)
[2024-12-26 18:07] LABS: HEMATOCRIT 26.4 % (36.0-48.0); HEMOGLOBIN 8.5 g/dL (12.0-16.0)
[2024-12-26 18:07] LABS: BG BASE EXCESS -5.3 mmol/L (-2.0-3.0); BG CARBOXYHEMOGLOBIN 1.4 % (0.5-1.5); BG DEOXYHEMOGLOBIN 3.6 % (0.0-5.0); BG FRACTION INSPIRED OXYGEN 21; BG HCO3 ACT 17.9 mmol/L (21.0-28.0); BG METHEMOGLOBIN 0.3 % (0.5-1.5); BG OXYGEN SATURATION 96.3 % (94.0-98.0); BG OXYHEMOGLOBIN 94.7 % (94.0-98.0); BG PCO2 26.7 mmHg (32.0-45.0); BG PH 7.444 (7.350-7.450); BG PO2 85.1 mmHg (83.0-108.0); BG SAMPLE SITE RIGHT BRACHIAL; BG TOTAL HEMOGLOBIN 8.3 g/dL (12.0-16.0); BG VENT MODE ROOM AIR
[2024-12-26 18:31] LABS: IRON 147 ug/dL (50-170)
[2024-12-26 18:33] LABS: PHOSPHORUS 2.8 mg/dL (2.5-4.9)
[2024-12-26 18:34] LABS: TOTAL IRON BINDING CAPACITY 281 ug/dl (250-425)
[2024-12-26 18:50] LABS: CLARITY URINE CLEAR (CLEAR); COLOR URINE YELLOW (YELLOW); GLUCOSE URINE 3+ (NEGATIVE); KETONES URINE 1+ (NEGATIVE); LEUKOCYTE ESTERASE URINE NEGATIVE (NEGATIVE); NITRITE URINE NEGATIVE (NEGATIVE); OCCULT BLOOD URINE NEGATIVE (NEGATIVE); PH URINE 5.5 (4.5-8.0); PROTEIN URINE NEGATIVE (NEGATIVE); SPECIFIC GRAVITY URINE 1.028 (1.005-1.030); UROBILINOGEN URINE 0.2 E.U./dL (0.2-1.0)
[2024-12-26 19:05] LABS: HEPATITIS B SURFACE ANTIGEN NEGATIVE (Negative)
[2024-12-26 19:11] LABS: WBC URINE 0-2 /hpf (0-2)
[2024-12-26 19:12] LABS: BACTERIA URINE TRACE; RBC URINE 0-2 /hpf (0-2); SQUAMOUS EPITHELIAL CELL URINE FEW /lpf (RARE/1+)
[2024-12-26 19:26] LABS: HEPATITIS C AB NON REACTIVE (Neg) (Negative)
[2024-12-26 19:56] LABS: BETA HYDROXYBUTYRATE 2.4 mMol/L (0.0-0.3)
[2024-12-26] MEDS ORDERED: MEDICATION NOT ON FORMULARY EA (Ferrous Sulfate 1 TAB) MT SCH (21:00)
[2024-12-26] MEDS: CARVEDILOL 6.25 MG TABLET PO SCH (21:00)
[2024-12-26 21:30] LABS: CHLORIDE 100 mEq/L (98-107); POTASSIUM 4.4 mEq/L (3.5-5.1); SODIUM 130 mEq/L (136-145)
[2024-12-26 21:31] LABS: CARBON DIOXIDE 19 mEq/L (21-32)
[2024-12-26 21:38] LABS: PHOSPHORUS 2.2 mg/dL (2.5-4.9)
[2024-12-27] VITALS (38 sets, daily range): BP systolic 91–123; BP diastolic 45–71; PULSE 69–123; RESP 11–22; TEMP 36.1–37.1; O2SAT 94–100
[2024-12-27 01:04] LABS: CHLORIDE 103 mEq/L (98-107); POTASSIUM 4.2 mEq/L (3.5-5.1); SODIUM 134 mEq/L (136-145)
[2024-12-27 01:05] LABS: CARBON DIOXIDE 24 mEq/L (21-32)
[2024-12-27 01:12] LABS: PHOSPHORUS 1.7 mg/dL (2.5-4.9)
[2024-12-27] MEDS: SODIUM PHOSPHATE 15 MMOL in SODIUM CHLORIDE 0.9% 245 ML IV PRN (04:32)
[2024-12-27 06:45] LABS: EOSINOPHILS % 0.7 % (0.0-5.0); HEMATOCRIT. 21.8 % (36.0-48.0); HEMOGLOBIN. 7.1 g/dL (12.0-16.0); LYMPHOCYTES % 8.5 % (20.0-50.0); MEAN CORPUSCULAR HGB CONC 32.9 g/dL (31.0-37.0); MEAN CORPUSCULAR VOLUME 88.2 fL (81.0-99.0); MEAN PLATELET VOLUME 8.2 fl (7.4-10.4); MONOCYTES % 12.7 % (2.0-8.0); NEUTROPHILS % 78.1 % (40.0-76.0); PLATELET 193 x1000/uL (130-400); RED BLOOD CELL COUNT 2.47 mill/uL (4.2-5.4); RED CELL DISTRIBUTION WIDTH 16.9 % (11.6-14.6)
[2024-12-27 06:58] LABS: CALCIUM 8.2 mg/dL (8.7-10.4); CHLORIDE 104 mEq/L (98-107); POTASSIUM 3.8 mEq/L (3.5-5.1); SODIUM 136 mEq/L (136-145)
[2024-12-27 06:59] LABS: CARBON DIOXIDE 24 mEq/L (21-32)
[2024-12-27 07:04] LABS: CREATININE 0.9 mg/dL (0.6-1.0); GLUCOSE 190 mg/dL (70-105); UREA NITROGEN BLOOD 45 mg/dL (9-23)
[2024-12-27] MEDS: KCL 20MEQ/100ML PREMIX 100 ML IV PRN (07:34)
[2024-12-27] MEDS ORDERED: DEXTROSE 50% WATER 50ML SYRINGE IV PRN ×3 (08:30→09:15)
[2024-12-27] MEDS: SPIRONOLACTONE 25MG TABLET PO SCH (08:45)
[2024-12-27] MEDS: PANTOPRAZOLE SODIUM 40 MG/VIAL IV SCH ×2 (08:45→21:28)
[2024-12-27] MEDS ORDERED: MEDICATION NOT ON FORMULARY EA (Omeprazole 1 CAP) MT SCH (09:00)
[2024-12-27 09:52] LABS: PHOSPHORUS 1.8 mg/dL (2.5-4.9)
[2024-12-27] MEDS ORDERED: SODIUM BICARBONATE 4.2% 2.5MEQ/5ML VIAL IV ONE (09:54)
[2024-12-27] MEDS ORDERED: LIDOCAINE HCL 1% 10 MG/ML 10ML VIAL ONE (09:54)
[2024-12-27] MEDS ORDERED: INSULIN GLARGINE 100 UNITS/ML SUBCUT SCH (10:00)
[2024-12-27] MEDS: CEFTRIAXONE 1GM/50ML 50 ML IV SCH (10:11)
[2024-12-27] MEDS: INSULIN GLARGINE 100 UNITS/ML SUBCUT SCH (10:12)
[2024-12-27] MEDS: PAROXETINE HCL 10MG TABLET PO SCH (11:05)
[2024-12-27] MEDS ORDERED: BLOOD SUGAR DIAGNOSTIC STRIP TEST SCH ×2 (11:30)
[2024-12-27] MEDS ORDERED: INSULIN LISPRO 100 UNITS/ML SUBCUT SCH ×2 (12:00)
[2024-12-27] MEDS: INSULIN LISPRO 100 UNITS/ML SUBCUT SCH (12:50)
[2024-12-27] MEDS: BLOOD SUGAR DIAGNOSTIC STRIP TEST SCH (12:52)
[2024-12-27 13:03] LABS: AMMONIA < 17 uMol/L (<32)
[2024-12-27] MEDS: ALBUMIN HUMAN 25GM/100ML (25%) IV SCH (17:30)
[2024-12-28] VITALS: BP 102/55; PULSE 94; RESP 18; TEMP 34.7; O2SAT 98
[2024-12-28 04:00] VITALS: BP 95/51; PULSE 84; RESP 18; TEMP 36.3
[2024-12-28 07:35] LABS: BASOPHILS % 0.7 % (0.0-2.0); EOSINOPHILS % 0.6 % (0.0-5.0); HEMATOCRIT. 22.5 % (36.0-48.0); HEMOGLOBIN. 7.4 g/dL (12.0-16.0); LYMPHOCYTES % 7.7 % (20.0-50.0); MEAN CORPUSCULAR HEMOGLOBIN 28.9 pg (28.0-32.0); MEAN CORPUSCULAR HGB CONC 32.8 g/dL (31.0-37.0); MEAN CORPUSCULAR VOLUME 88.1 fL (81.0-99.0); MEAN PLATELET VOLUME 8.4 fl (7.4-10.4); MONOCYTES % 7.8 % (2.0-8.0); NEUTROPHILS % 83.2 % (40.0-76.0); PLATELET 197 x1000/uL (130-400); RED BLOOD CELL COUNT 2.55 mill/uL (4.2-5.4); RED CELL DISTRIBUTION WIDTH 17.5 % (11.6-14.6)
[2024-12-28 07:39] LABS: CHLORIDE 103 mEq/L (98-107); POTASSIUM 4.2 mEq/L (3.5-5.1); SODIUM 132 mEq/L (136-145)
[2024-12-28 07:40] LABS: CARBON DIOXIDE 24 mEq/L (21-32); FOLIC ACID (FOLATE) SERUM 6.51 ng/mL (>5.38); VITAMIN B12 SERUM 1409 pg/mL (211-911)
[2024-12-28 07:45] LABS: CREATININE 0.9 mg/dL (0.6-1.0); GLUCOSE 287 mg/dL (70-105)
[2024-12-28 07:46] LABS: UREA NITROGEN BLOOD 30 mg/dL (9-23)
[2024-12-28 07:48] LABS: BILIRUBIN TOTAL 0.5 mg/dL (0.1-1.0)
[2024-12-28 08:00] VITALS: BP 98/52; PULSE 75; RESP 16; TEMP 36.4; O2SAT 99
[2024-12-28] MEDS: ACETAMINOPHEN 325MG TABLET PO PRN (09:47)
[2024-12-28 12:00] VITALS: BP 86/49; PULSE 77; RESP 16; TEMP 36.3; O2SAT 99
[2024-12-28] MEDS: ALBUMIN HUMAN 25GM/100ML (25%) IV SCH (13:03)
[2024-12-28] MEDS: MIDODRINE HCL 5MG TABLET PO SCH (15:18)
[2024-12-28 16:00] VITALS: BP 95/53; PULSE 80; RESP 19; TEMP 36.5; O2SAT 100
[2024-12-28 20:00] VITALS: BP 106/57; PULSE 84; RESP 20; TEMP 36.4; O2SAT 96
[2024-12-28] MEDS: CARVEDILOL 3.125 MG TABLET PO SCH (21:41)
[2024-12-28] MEDS: INSULIN GLARGINE 100 UNITS/ML SUBCUT SCH (21:42)
[2024-12-29] VITALS: BP 131/69; PULSE 88; RESP 20; TEMP 36.3; O2SAT 98
[2024-12-29 03:44] LABS: BASOPHILS % 0.6 % (0.0-2.0); EOSINOPHILS % 0.9 % (0.0-5.0); HEMATOCRIT. 26.1 % (36.0-48.0); HEMOGLOBIN. 8.3 g/dL (12.0-16.0); LYMPHOCYTES % 10.4 % (20.0-50.0); MEAN CORPUSCULAR HEMOGLOBIN 28.8 pg (28.0-32.0); MEAN CORPUSCULAR HGB CONC 31.9 g/dL (31.0-37.0); MEAN CORPUSCULAR VOLUME 90.5 fL (81.0-99.0); MEAN PLATELET VOLUME 8.1 fl (7.4-10.4); MONOCYTES % 10.5 % (2.0-8.0); NEUTROPHILS % 77.6 % (40.0-76.0); PLATELET 219 x1000/uL (130-400); RED BLOOD CELL COUNT 2.88 mill/uL (4.2-5.4); RED CELL DISTRIBUTION WIDTH 17.4 % (11.6-14.6); WHITE BLOOD COUNT 7.6 x1000/uL (4.5-11.0)
[2024-12-29 03:59] LABS: INR 1.1; PROTHROMBIN TIME 11.4 sec (9.6-11.0)
[2024-12-29 04:00] VITALS: BP 104/53; PULSE 75; PULSE 78; RESP 19; RESP 20; TEMP 36.3; O2SAT 98
[2024-12-29 04:14] LABS: CHLORIDE 105 mEq/L (98-107); POTASSIUM 3.9 mEq/L (3.5-5.1); SODIUM 133 mEq/L (136-145)
[2024-12-29 04:15] LABS: CALCIUM 8.2 mg/dL (8.7-10.4); CARBON DIOXIDE 22 mEq/L (21-32)
[2024-12-29 04:20] LABS: CREATININE 0.7 mg/dL (0.6-1.0); GLUCOSE 162 mg/dL (70-105); UREA NITROGEN BLOOD 24 mg/dL (9-23)
[2024-12-29 04:23] LABS: PHOSPHORUS 1.3 mg/dL (2.5-4.9)
[2024-12-29] MEDS ORDERED: LOPERAMIDE HCL 2MG CAPSULE PO PRN (04:30)
[2024-12-29 08:00] VITALS: BP 115/66; PULSE 79; RESP 16; TEMP 36.7; O2SAT 99
[2024-12-29] MEDS: POTASSIUM-SODIUM PHOSPHATE POWDER PACKET PO SCH (09:48)
[2024-12-29 12:00] VITALS: BP 115/60; PULSE 68; RESP 17; TEMP 36.6; O2SAT 100
[2024-12-29] MEDS ORDERED: LIDOCAINE HCL 1% 10 MG/ML 10ML VIAL ONE (12:29)
[2024-12-29] MEDS ORDERED: PROPOFOL 200MG/20ML VIAL IV ONE (14:10)
[2024-12-29] MEDS ORDERED: ONDANSETRON HCL 4MG/2ML INJ IV PRN (14:15)
[2024-12-29] MEDS ORDERED: SIMETHICONE 40 MG/0.6 ML 15ML ONE (14:20)
[2024-12-29 16:00] VITALS: BP 104/62; PULSE 72; RESP 17; TEMP 36.3; O2SAT 100
[2024-12-29 17:31] VITALS: BP 104/62; PULSE 72; TEMP 97.4; O2SAT 100
[2024-12-30] MEDS ORDERED: PANTOPRAZOLE 40MG DR TABLET PO SCH (07:20)
== END 2024-12-29 18:35 | disposition home or self-care (01) ==
LOC: ER 10:31 → EDBEDREQSVC 12:59 → EDBEDREQ 12:59 → EDBEDREQTM 12:59 → ENRESERV 13:17 → 5EST 15:14 → MICUSO 16:20 → 6WST 12-27 11:14
PROVIDERS: ADMIT Internal Medicine; ATTEND Internal Medicine
PROC: 30233N1 Transfusion of Nonautologous Red Blood Cells into Peripheral Vein, Percutaneous Approach (ICD-10-PCS; principal; 2024-12-26)
PROC: 0W9G3ZZ Drainage of Peritoneal Cavity, Percutaneous Approach (ICD-10-PCS; 2024-12-26)
PROC: 0W9G3ZZ Drainage of Peritoneal Cavity, Percutaneous Approach (ICD-10-PCS; 2024-12-27)
PROC: 02HV33Z Insertion of Infusion Device into Superior Vena Cava, Percutaneous Approach (ICD-10-PCS; 2024-12-29)
PROC: B5181ZA Fluoroscopy of Superior Vena Cava using Low Osmolar Contrast, Guidance (ICD-10-PCS; 2024-12-29)
PROC: B548ZZA Ultrasonography of Superior Vena Cava, Guidance (ICD-10-PCS; 2024-12-29)
PROC: 0DB78ZX Excision of Stomach, Pylorus, Via Natural or Artificial Opening Endoscopic, Diagnostic (ICD-10-PCS; 2024-12-29)
DX: K74.60 Unspecified cirrhosis of liver (principal); J96.01 Acute respiratory failure with hypoxia; E11.10 Type 2 diabetes mellitus with ketoacidosis without coma; K22.6 Gastro-esophageal laceration-hemorrhage syndrome; K92.0 Hematemesis; K76.6 Portal hypertension; E87.1 Hypo-osmolality and hyponatremia; N17.9 Acute kidney failure, unspecified; R18.8 Other ascites; E87.5 Hyperkalemia; D64.9 Anemia, unspecified; I10 Essential (primary) hypertension; K31.89 Other diseases of stomach and duodenum; Z79.899 Other long term (current) drug therapy; Z90.12 Acquired absence of left breast and nipple; Z85.3 Personal history of malignant neoplasm of breast
CPT/HCPCS: 36415; 36430; 36573; 36600; 49083; 71045; 74176; 80048; 80051; 80076; 80320; 81003; 82010; 82105; 82140; 82247; 82270; 82375; 82607; 82746; 82805; 82962; 83036; 83540; 83550; 83605; 83735; 83880; 83930; 84100; 84145; 84484; 85014; 85018; 85025; 85044; 86705; 86850; 86900; 86920; 87340; 88305; 88312; 88313; 93005; 96361; 96365; 96375; 97162; 97530; 99291; A4606; C1725; J0696; J1815; J2003; J2270; J2405; J2470; J2704; J3480; J3490; J7030; J7042; J7050; P9016; P9047; G0480

== ENCOUNTER 2025-01-08 15:58 | Inpatient (IN) | payer MEDICAID ==
[~2025-01-08] VITALS: Ht 154.9 cm; Wt 48.1 kg
[2025-01-08 17:23] LABS: HEMATOCRIT. 25.9 % (36.0-48.0); HEMOGLOBIN. 8.3 g/dL (12.0-16.0); MEAN PLATELET VOLUME 7.9 fl (7.4-10.4); PLATELET 267 x1000/uL (130-400); RED BLOOD CELL COUNT 2.92 mill/uL (4.2-5.4); RED CELL DISTRIBUTION WIDTH 20.3 % (11.6-14.6)
[2025-01-08 17:30] LABS: INR 1.0
[2025-01-08 17:34] LABS: CREATININE 1.0 mg/dL (0.6-1.0)
[2025-01-08 17:35] LABS: UREA NITROGEN BLOOD 20 mg/dL (9-23)
[2025-01-08 17:36] LABS: ASPARTATE AMINOTRANSFERASE 98 IU/L (<34)
[2025-01-08 17:37] LABS: BILIRUBIN TOTAL 0.6 mg/dL (0.1-1.0); PROTEIN TOTAL 7.4 g/dL (6.0-8.3)
[2025-01-08 17:41] LABS: LYMPHOCYTES % MANUAL 5.0 % (20.0-60.0); MONOCYTES % MANUAL 6.0 % (2.0-8.0); NEUTROPHILS % MANUAL 89.0 % (45.0-75.0); PLATELET ESTIMATE NORMAL
[2025-01-08] MEDS: INSULIN REGULAR (HUMULIN R) 1000UNITS/10ML VIAL SUBCUT ONE (20:34)
[2025-01-08] MEDS: ONDANSETRON 4MG ODT PO ONE (20:37)
[2025-01-08] MEDS: MORPHINE SULFATE 4 MG/ML INJ (FOR IV/IM USE) IM ONE (20:38)
[2025-01-08] MEDS ORDERED: ONDANSETRON HCL 4MG/2ML INJ IV PRN (21:30)
[2025-01-08] MEDS ORDERED: NALOXONE HCL 0.4MG/ML VIAL IV PRN (21:45)
[2025-01-08 22:33] VITALS: BP 103/53; PULSE 78; RESP 18; TEMP 36.4
[2025-01-08] MEDS: MORPHINE SULFATE 2 MG/ML INJ (NOT FOR IM USE) IV PRN (22:42)
[2025-01-08] MEDS: ACETAMINOPHEN 650MG/20.3ML UDC GT PRN (22:49)
[2025-01-09] VITALS: BP 103/58; PULSE 88; RESP 18; TEMP 36; O2SAT 97
[2025-01-09] MEDS ORDERED: DEXTROSE 50% WATER 50ML SYRINGE IV PRN (01:30)
[2025-01-09 04:00] VITALS: BP 129/70; PULSE 94; RESP 18; TEMP 36.5; O2SAT 97
[2025-01-09 05:58] LABS: CREATININE 0.9 mg/dL (0.6-1.0)
[2025-01-09 06:00] LABS: UREA NITROGEN BLOOD 19 mg/dL (9-23)
[2025-01-09 06:01] LABS: HEMATOCRIT. 26.0 % (36.0-48.0); HEMOGLOBIN. 8.5 g/dL (12.0-16.0); MEAN PLATELET VOLUME 8.2 fl (7.4-10.4); PHOSPHORUS 2.8 mg/dL (2.5-4.9); PLATELET 261 x1000/uL (130-400); RED BLOOD CELL COUNT 2.96 mill/uL (4.2-5.4); RED CELL DISTRIBUTION WIDTH 19.6 % (11.6-14.6)
[2025-01-09] MEDS: BLOOD SUGAR DIAGNOSTIC STRIP TEST SCH (07:04)
[2025-01-09] MEDS: INSULIN LISPRO 100 UNITS/ML SUBCUT SCH (07:50)
[2025-01-09 08:00] VITALS: BP 109/64; PULSE 79; RESP 16; TEMP 36.2; O2SAT 96
[2025-01-09] MEDS: ENOXAPARIN 30MG/0.3ML SYR SUBCUT SCH (08:39)
[2025-01-09 12:00] VITALS: BP 112/60; PULSE 73; RESP 16; TEMP 36.3; O2SAT 95
[2025-01-09] MEDS ORDERED: SODIUM BICARBONATE 4.2% 2.5MEQ/5ML VIAL IV ONE (12:52)
[2025-01-09] MEDS: LIDOCAINE HCL 1% 10 MG/ML 10ML VIAL ONE (12:52)
[2025-01-09 13:26] LABS: BAND% 2.0 % (1.0-6.0); EOSINOPHILS % MANUAL 1.0 % (0.0-5.0); LYMPHOCYTES % MANUAL 10.0 % (20.0-60.0); MONOCYTES % MANUAL 7.0 % (2.0-8.0); NEUTROPHILS % MANUAL 80.0 % (45.0-75.0); PLATELET ESTIMATE NORMAL
[2025-01-09 16:00] VITALS: BP 95/50; PULSE 64; RESP 17; TEMP 36.4; O2SAT 95
[2025-01-09 20:00] VITALS: BP 125/67; PULSE 114; RESP 18; TEMP 36.2; O2SAT 100
[2025-01-09] MEDS: HYDROCODONE/ACETAMINOPHEN 5/325MG TABLET PO PRN (23:06)
[2025-01-10] VITALS (7 sets, daily range): BP systolic 93–114; BP diastolic 42–71; PULSE 95–116; RESP 15–20; TEMP 34.6–36.4; O2SAT 92–99
[2025-01-11] VITALS: BP 107/57; PULSE 101; RESP 20; TEMP 36.3; O2SAT 99
[2025-01-11 04:00] VITALS: BP 105/58; PULSE 100; RESP 20; TEMP 36.2; O2SAT 99
[2025-01-11 07:45] LABS: BASOPHILS % 1.5 % (0.0-2.0); EOSINOPHILS % 0.6 % (0.0-5.0); HEMATOCRIT. 25.9 % (36.0-48.0); HEMOGLOBIN. 8.3 g/dL (12.0-16.0); LYMPHOCYTES % 9.9 % (20.0-50.0); MEAN PLATELET VOLUME 7.8 fl (7.4-10.4); MONOCYTES % 13.5 % (2.0-8.0); NEUTROPHILS % 74.5 % (40.0-76.0); PLATELET 251 x1000/uL (130-400); RED BLOOD CELL COUNT 2.95 mill/uL (4.2-5.4); RED CELL DISTRIBUTION WIDTH 19.6 % (11.6-14.6)
[2025-01-11 08:00] VITALS: BP 108/63; RESP 17; TEMP 36.3; O2SAT 98
[2025-01-11 08:02] LABS: CREATININE 0.8 mg/dL (0.6-1.0); UREA NITROGEN BLOOD 18 mg/dL (9-23)
[2025-01-11 08:05] LABS: PHOSPHORUS 2.6 mg/dL (2.5-4.9)
[2025-01-11] MEDS: PROPRANOLOL HCL 10MG TABLET PO SCH (09:00)
[2025-01-11] MEDS: FUROSEMIDE 20MG TABLET PO SCH (09:40)
[2025-01-11 12:00] VITALS: BP 95/52; PULSE 108; RESP 18; TEMP 36.6; O2SAT 100
[2025-01-11] MEDS ORDERED: MAGNESIUM 2 G PREMIX 50 ML IV SCH (14:00)
[2025-01-11] MEDS: LINAGLIPTIN 5MG TABLET PO SCH (14:33)
[2025-01-11] MEDS: INSULIN LISPRO 100 UNITS/ML SUBCUT SCH (14:45)
[2025-01-11] MEDS: PAROXETINE HCL 10MG TABLET PO SCH (16:44)
[2025-01-11] MEDS: MIDODRINE HCL 5MG TABLET PO SCH (16:45)
[2025-01-11] MEDS: GLIPIZIDE 10MG TABLET PO SCH (16:45)
[2025-01-11] MEDS: SPIRONOLACTONE 25MG TABLET PO SCH (16:46)
[2025-01-11 20:00] VITALS: BP 110/64; PULSE 102; RESP 19; TEMP 36.3; O2SAT 100
[2025-01-11] MEDS: TRAZODONE HCL 50MG TABLET PO PRN (21:43)
[2025-01-11] MEDS: CARVEDILOL 6.25 MG TABLET PO SCH (21:43)
[2025-01-12] VITALS: BP 115/84; PULSE 89; RESP 18; TEMP 36.6; O2SAT 99
[2025-01-12 04:00] VITALS: BP 122/68; PULSE 89; RESP 18; TEMP 36.6; O2SAT 100
[2025-01-12 08:00] VITALS: BP 89/47; PULSE 81; RESP 17; TEMP 36.2; O2SAT 98
[2025-01-12] MEDS ORDERED: SODIUM BICARBONATE 4.2% 2.5MEQ/5ML VIAL IV ONE (10:36)
[2025-01-12] MEDS ORDERED: LIDOCAINE HCL 1% 10 MG/ML 10ML VIAL ONE (10:37)
[2025-01-12] MEDS: DOCUSATE SODIUM 100MG CAPSULE PO SCH (10:54)
[2025-01-12 12:00] VITALS: BP 85/44; PULSE 78; RESP 17; TEMP 36.3; O2SAT 98
[2025-01-12 16:00] VITALS: BP 91/50; PULSE 90; RESP 18; TEMP 36.3; O2SAT 100
[2025-01-12 20:00] VITALS: BP 112/79; PULSE 79; RESP 18; TEMP 36.9; O2SAT 100
[2025-01-13] VITALS: BP 126/76; PULSE 88; RESP 17; TEMP 36.4; O2SAT 100
[2025-01-13 04:00] VITALS: BP 138/85; PULSE 74; RESP 18; TEMP 36.8; O2SAT 99
[2025-01-13 08:00] VITALS: BP 85/46; PULSE 75; RESP 17; TEMP 36.4; O2SAT 98
[2025-01-13 12:00] VITALS: BP 118/55; PULSE 81; RESP 19; TEMP 36.5; O2SAT 98
[2025-01-13 16:00] VITALS: BP 95/47; PULSE 82; RESP 18; TEMP 36.4; O2SAT 100
[2025-01-13 20:00] VITALS: BP 110/67; PULSE 84; RESP 19; TEMP 36.5; O2SAT 98
[2025-01-14] VITALS: BP 108/56; PULSE 75; RESP 20; TEMP 36.4; O2SAT 100
[2025-01-14 04:00] VITALS: BP 99/51; PULSE 75; RESP 21; TEMP 36.3; O2SAT 100
[2025-01-14] MEDS: HYDROCODONE/ACETAMINOPHEN 5/325MG TABLET PO PRN (06:35)
[2025-01-14 08:00] VITALS: BP 114/43; PULSE 68; RESP 18; TEMP 36.4; O2SAT 99
[2025-01-14 08:14] LABS: HEMATOCRIT. 28.0 % (36.0-48.0); HEMOGLOBIN. 8.7 g/dL (12.0-16.0); MEAN PLATELET VOLUME 8.0 fl (7.4-10.4); PLATELET 240 x1000/uL (130-400); RED BLOOD CELL COUNT 3.19 mill/uL (4.2-5.4); RED CELL DISTRIBUTION WIDTH 18.0 % (11.6-14.6)
[2025-01-14 08:37] LABS: CREATININE 0.8 mg/dL (0.6-1.0)
[2025-01-14 08:38] LABS: UREA NITROGEN BLOOD 16 mg/dL (9-23)
[2025-01-14 08:40] LABS: PHOSPHORUS 2.2 mg/dL (2.5-4.9)
[2025-01-14 10:09] LABS: BAND% 1.0 % (1.0-6.0); EOSINOPHILS % MANUAL 2.0 % (0.0-5.0); LYMPHOCYTES % MANUAL 13.0 % (20.0-60.0); MONOCYTES % MANUAL 10.0 % (2.0-8.0); NEUTROPHILS % MANUAL 74.0 % (45.0-75.0)
[2025-01-14 10:10] LABS: PLATELET ESTIMATE NORMAL
[2025-01-14 12:00] VITALS: BP 100/52; PULSE 79; RESP 18; TEMP 36.6; O2SAT 99
[2025-01-14 15:45] VITALS: BP 105/59; PULSE 83; TEMP 97.7; O2SAT 99
[2025-01-14 16:00] VITALS: BP 101/49; PULSE 83; RESP 18; TEMP 36.5; O2SAT 99
== END 2025-01-14 17:35 | disposition home health service (06) ==
LOC: ER 15:58 → EDBEDREQ 17:50 → EDBEDREQTM 19:41 → EDBEDREQ 19:41 → 6WST 21:14
PROVIDERS: ADMIT Internal Medicine Nephrology; ATTEND Internal Medicine Nephrology
PROC: 0W9G3ZZ Drainage of Peritoneal Cavity, Percutaneous Approach (ICD-10-PCS; principal; 2025-01-09)
PROC: 0W9G30Z Drainage of Peritoneal Cavity with Drainage Device, Percutaneous Approach (ICD-10-PCS; 2025-01-12)
DX: K74.60 Unspecified cirrhosis of liver (principal); E43 Unspecified severe protein-calorie malnutrition; K72.10 Chronic hepatic failure without coma; D63.8 Anemia in other chronic diseases classified elsewhere; R18.8 Other ascites; E87.1 Hypo-osmolality and hyponatremia; E11.9 Type 2 diabetes mellitus without complications; E78.5 Hyperlipidemia, unspecified; I10 Essential (primary) hypertension; Z85.3 Personal history of malignant neoplasm of breast; Z68.20 Body mass index [BMI] 20.0-20.9, adult
CPT/HCPCS: 36415; 49083; 76705; 80048; 80053; 82962; 83036; 83735; 84100; 85025; 93005; 97161; 99285; J1650; J1815; J2003; J2270; J3490; Q0162

== ENCOUNTER 2025-05-04 19:11 | Inpatient (IN) | payer MEDICAID ==
[~2025-05-04] VITALS: Ht 154.9 cm; Wt 54.4 kg
[~2025-05-04 19:11] MED LIST changes: -BUME2TAB7 PO; +COR3 MT; -COR6 MT; -GLIP10TA17 PO; +MIDO10TA3 MT; -MIDO5TAB4 MT; -TRAZ-251 MT
[2025-05-04 20:10] VITALS: O2SAT 99
[2025-05-04 20:46] LABS: BASOPHILS % 1.8 % (0.0-2.0); EOSINOPHILS % 0.9 % (0.0-5.0); HEMATOCRIT. 31.2 % (36.0-48.0); HEMOGLOBIN. 9.9 g/dL (12.0-16.0); LYMPHOCYTES % 9.4 % (20.0-50.0); MEAN PLATELET VOLUME 7.8 fl (7.4-10.4); MONOCYTES % 11.4 % (2.0-8.0); NEUTROPHILS % 76.5 % (40.0-76.0); PLATELET 225 x1000/uL (130-400); RED BLOOD CELL COUNT 3.48 mill/uL (4.2-5.4); RED CELL DISTRIBUTION WIDTH 20.0 % (11.6-14.6)
[2025-05-04 21:04] LABS: CREATININE 0.9 mg/dL (0.6-1.0); UREA NITROGEN BLOOD 12 mg/dL (9-23)
[2025-05-04 21:06] LABS: ASPARTATE AMINOTRANSFERASE 116 IU/L (<34); BILIRUBIN DIRECT 0.2 mg/dL (<=3.0); BILIRUBIN TOTAL 0.4 mg/dL (0.1-1.0); PROTEIN TOTAL 7.9 g/dL (6.0-8.3)
[2025-05-04 23:07] LABS: INR 1.0
[2025-05-04 23:27] LABS: CLARITY URINE CLEAR (CLEAR); COLOR URINE YELLOW (YELLOW); SPECIFIC GRAVITY URINE 1.010 (1.005-1.030)
[2025-05-04 23:28] LABS: GLUCOSE URINE 3+ (NEGATIVE); KETONES URINE NEGATIVE (NEGATIVE); LEUKOCYTE ESTERASE URINE TRACE (NEGATIVE); NITRITE URINE NEGATIVE (NEGATIVE); OCCULT BLOOD URINE 2+ (NEGATIVE); PH URINE 6.0 (4.5-8.0); PROTEIN URINE NEGATIVE (NEGATIVE); UROBILINOGEN URINE 0.2 E.U./dL (0.2-1.0)
[2025-05-05 01:07] LABS: BACTERIA URINE TRACE; SQUAMOUS EPITHELIAL CELL URINE 2+ /lpf (RARE/1+)
[2025-05-05 02:24] VITALS: BP 136/55; PULSE 77; RESP 19; TEMP 36.2512
[2025-05-05] MEDS ORDERED: DEXTROSE 50% WATER 50ML SYRINGE IV PRN ×2 (03:45)
[2025-05-05] MEDS ORDERED: LACTULOSE 20G/30ML UDC PO PRN (03:45)
[2025-05-05] MEDS: CEFTRIAXONE 1GM/50ML 50 ML IV SCH (05:23)
[2025-05-05] MEDS: GABAPENTIN 300MG CAPSULE PO SCH (05:23)
[2025-05-05] MEDS: PANTOPRAZOLE 40MG DR TABLET PO SCH (06:16)
[2025-05-05] MEDS: BLOOD SUGAR DIAGNOSTIC STRIP TEST SCH ×2 (06:25→06:26)
[2025-05-05 06:52] LABS: HEPATITIS C AB NON REACTIVE (Neg) (Negative)
[2025-05-05 08:00] VITALS: BP 107/67; PULSE 57; RESP 18; TEMP 37.9; O2SAT 100
[2025-05-05] MEDS: INSULIN LISPRO 100 UNITS/ML SUBCUT SCH (08:29)
[2025-05-05] MEDS ORDERED: *PATIENT'S OWN MEDICATION STORAGE XX SCH (08:45)
[2025-05-05] MEDS: PAROXETINE HCL 10MG TABLET PO SCH (09:00)
[2025-05-05] MEDS: FUROSEMIDE 40MG TABLET PO SCH (09:01)
[2025-05-05] MEDS: SPIRONOLACTONE 50MG TABLET PO SCH (09:01)
[2025-05-05] MEDS: FERROUS SULFATE 325MG TABLET PO SCH (09:01)
[2025-05-05] MEDS ORDERED: LIDOCAINE HCL 1% 10 MG/ML 10ML VIAL ONE (09:50)
[2025-05-05] MEDS: INSULIN GLARGINE 100 UNITS/ML SUBCUT SCH (09:53)
[2025-05-05 10:37] LABS: PLATELET 246 x1000/uL (130-400); RED BLOOD CELL COUNT 3.54 mill/uL (4.2-5.4); RED CELL DISTRIBUTION WIDTH 19.6 % (11.6-14.6)
[2025-05-05 11:03] LABS: CREATININE 0.9 mg/dL (0.6-1.0); UREA NITROGEN BLOOD 13 mg/dL (9-23)
[2025-05-05 12:00] VITALS: BP 113/72; PULSE 102; RESP 18; TEMP 36.3; O2SAT 100
[2025-05-05 16:00] VITALS: BP 105/58; PULSE 91; RESP 18; TEMP 36.4; O2SAT 100
[2025-05-05] MEDS ORDERED: INSU100I28 SQ (16:43)
[2025-05-05 18:07] VITALS: BP 105/58; PULSE 91; RESP 18; TEMP 97.5
== END 2025-05-05 19:20 | disposition home or self-care (01) ==
LOC: ER 19:11 → 8EST 23:29 → EDBEDREQTM 23:30 → EDBEDREQ 23:30 → ENRESERV 23:52
PROVIDERS: ADMIT Internal Medicine; ATTEND Internal Medicine
PROC: 0W9G3ZZ Drainage of Peritoneal Cavity, Percutaneous Approach (ICD-10-PCS; principal; 2025-05-05)
DX: K74.60 Unspecified cirrhosis of liver (principal); R18.8 Other ascites; D64.9 Anemia, unspecified; E11.65 Type 2 diabetes mellitus with hyperglycemia; T38.3X6A Underdosing of insulin and oral hypoglycemic [antidiabetic] drugs, initial encounter; Z79.4 Long term (current) use of insulin; Z79.899 Other long term (current) drug therapy; Z91.148 Patient's other noncompliance with medication regimen for other reason
CPT/HCPCS: 36415; 49083; 80048; 80076; 81003; 82140; 82962; 83036; 83735; 85025; 85027; 86705; 87340; 99285; J0696; J1815; J2003